=== PATIENT | male | born 2000 | race Caucasian/White ===

== ENCOUNTER → 2020-05-24 | Day surgery (SDC) | payer BC, OTHER ==
--- NOTE | ~2020-05-24 | O ---
[facility] [place] [address] OPERATIVE REPORT Name: AROLDO DÍAZ Room #: REG [employer].#: [id number] Admission: 05/24/20 Attend Phys: Asha Person, Discharge: Date of : 00 Report #: [id number] THIS REPORT FOR: cc: Sami Grace MD,Sami Person,Asha Maldonado MD ~ CC: Sami Person DATE OF SERVICE: 05/24/2020 PREOPERATIVE DIAGNOSIS: Left small finger middle phalanx fracture. POSTOPERATIVE DIAGNOSIS: Left small finger middle phalanx fracture. PROCEDURE PERFORMED: Closed reduction and percutaneous pin fixation of left small finger middle phalanx fracture. SURGEON: Asha Person MD ANESTHESIA: General mask anesthesia. ESTIMATED BLOOD LOSS: Minimal. TOURNIQUET TIME: 31 minutes. COMPLICATIONS: None. CONDITION: Stable. DISPOSITION: Recovery room. INDICATIONS: The patient is a 20-year-old male with the above-mentioned diagnosis. He elects for operative treatment. The risks, benefits, alternatives and complications were discussed including but not limited to infection, damage to blood vessels or nerves, incomplete relief or worsening of any symptoms, nonunion, malunion, hardware failure, hardware irritation or stiffness. Informed consent was obtained. The correct extremity was identified and labeled by myself after verbal confirmation of the patient as well as visual confirmation and signed informed consent. DESCRIPTION OF PROCEDURE: The patient was brought back to the operating room back and placed on the operating table in supine position. He received preoperative antibiotics. Tourniquet was placed over padding on the patient's left upper extremity. Left upper extremity was sterilely prepped and draped in the usual fashion. Final timeout was taken to verify correct patient, operative [facility] [address] [place] [address] OPERATIVE REPORT Name: AROLDO DÍAZ Room #: REG [facility]#: [id number] Admission: 05/24/20 Attend Phys: Asha Person, Discharge: Date of : 00 Report #: [id number] procedure, operative site, all concurred. The arm was elevated, exsanguinated and tourniquet inflated. ____ was applied to the patient. Fluoroscopy was brought in and a closed reduction maneuver was performed. I was able to reduce the fragment quite nicely to near anatomic alignment. Of note, there was a nondisplaced ulnar condyle fracture as well. Next, ____ inch K-wire was placed across the fracture site on the radial side. This was partially used as a gianna stick to further reduce the fracture. Next, an ulnar-sided wire was placed across the fracture site into the subchondral bone and then a transverse 8.8-mm K-wire was placed. AP and lateral views showed good position of the fracture and good position of the hardware. There was no rotational or angular deformity. The pins were cut beneath the skin. The digital nerve block was done as well as subcutaneous tissue was infiltrated dorsally with a total of 8 mL of 0.25% Marcaine. He was placed into a bulky dressing. All fingers were pink with brisk capillary refill at the conclusion of case after deflation of tourniquet. All sponge and needle counts were correct. The patient was transferred to postoperative recovery room in stable condition. By: [id number] Asha Person MD /nt
== END | disposition home or self-care (01) ==
LOC: PRE 15:40 → EDSTATUS 16:00 → OR 16:04
PROVIDERS: ATTEND Orthopaedic Surgery Hand Surgery
DX: S62.627A Displaced fracture of middle phalanx of left little finger, initial encounter for closed fracture (principal); X58.XXXA Exposure to other specified factors, initial encounter; Y93.89 Activity, other specified; Y92.89 Other specified places as the place of occurrence of the external cause; Y99.8 Other external cause status
CPT/HCPCS: 50010; 50101; 50386; 51277; 57006; 57091; 57178; 62110; 62900; 70005

== ENCOUNTER → 2020-05-24 | Outpatient (CLI) | payer BC, OTHER | LOC: LAB 13:38 | PROVIDERS: ATTEND Orthopaedic Surgery Hand Surgery | DX: Z20.828 Contact with and (suspected) exposure to other viral communicable diseases (principal) ==

== ENCOUNTER → 2020-07-09 | Outpatient (CLI) | payer BC, OTHER | LOC: LAB 07-08 09:46 | PROVIDERS: ATTEND Anesthesiology | DX: Z01.812 Encounter for preprocedural laboratory examination (principal); Z20.828 Contact with and (suspected) exposure to other viral communicable diseases ==